=== PATIENT | male | born 1990 | race Caucasian/White ===

== ENCOUNTER 2023-02-12 12:23 | Emergency (ER) | payer OTHER ==
[~2023-02-12] VITALS: Ht 172.7 cm; Wt 77.3 kg
[2023-02-12 12:35] VITALS: BP 145/76; TEMP 97.5
[2023-02-12] MEDS ORDERED: PEN-VEE K500 MG PO (13:36)
[2023-02-12] MEDS ORDERED: NORCO 325 MG-51 TAB PO (13:36)
[2023-02-12 14:06] VITALS: PULSE 76
== END 2023-02-12 14:06 | disposition home or self-care (01) ==
LOC: COL.ER 12:23
DX: K08.89 Other specified disorders of teeth and supporting structures (principal); Z87.81 Personal history of (healed) traumatic fracture